=== PATIENT | male | born 1955 | race Caucasian/White ===

== ENCOUNTER → 2016-12-02 | Outpatient (CLI) | payer MEDICARE ==
[~2016-12-02] MED LIST: DICL25TA PO; FLECTOR1.3 TOP; GABA600T3 OR; IBUP600T OR; PRAV40TA OR; RYBIX SL; SOMA350T PO; TRAM50TA2 PO; TRIC145T19 OR; VICO5TAB OR; advil PO
--- NOTE | 2016-12-03 10:39 | REP ---
REASON FOR EXAM: History of disc disorders with radicular symptoms. Comparison exam 04/15/2011. Once again, there is loss of disc space height and disc hydrational signal at every lumbar level. This has increased in severity compared to the prior exam. No abnormal signal has developed in the imaged portion of the spinal cord. Vertebral body height and alignment is unchanged. The marrow signal is within normal limits. At the L1-2 level, there is an asymmetric broad based annular bulge with a small left paracentral disc extrusion which focally causes a concave anterior deformity of the left anterior thecal sac. This represents a change from the prior exam when only a small focal disc protrusion was present. There is no foraminal narrowing. There is mild central canal stenosis. The small extrusion is seen in conjunction with a broad based annular bulge which has increased from the prior exam. At the L2-3 level, there is a large broad based annular bulge seen in conjunction with a small central slightly left paracentral disc extrusion which causes a mild concave anterior deformity of the anterior thecal sac. This is seen in conjunction with a large broad based annular bulge the size of which has increased from the prior exam. The factors in concert are causing mild to moderate central canal stenosis. There is no evidence of foraminal narrowing or compression of either foraminal nerve. Mild degenerative facet joint changes are present with thickening of the ligamentum flava. At the L3-4 level, there is a large asymmetric broad based annular bulge which has increased from the prior exam. This is seen in conjunction with degenerative facet joint changes bilaterally and thickening of the ligamentum flava. The broad based bulge flattens and straightens the anterior surface of the thecal sac and the degenerative factors in concert are causing moderate central canal stenosis which has worsened from the prior exam. At the L4-5 level, there is a large asymmetric broad based annular bulge which appears to have increased from the prior exam. There is degenerative facet joint change seen bilaterally with thickening of the ligamentum flava and the factors in concert are causing moderate central canal stenosis increased from the prior exam. There is no evidence of a disc extrusion. At the L5-S1 level, there is a large broad based annular bulge seen in conjunction with a central/left paracentral disc extrusion. The discogenic changes are causing moderate central canal stenosis which has increased from the prior exam and the extruded disc material is compressing upon the S1 nerve. The broad based annular bulge is seen mildly compressing the foraminal nerves as they exit the neural foramen. These factors represent a change compared to the prior exam. IMPRESSION: 1. Multilevel discogenic changes and degenerative facet joint changes as described above. There are multiple disc extrusions and there is evidence of foraminal nerve compression with special attention drawn to the L5-S1 level. Signed by Tyshawn Cano DO 12/03/2016 11:53 A
== END ==
LOC: M RAD 18:28
PROVIDERS: ATTEND Surgery
DX: M51.16 Intervertebral disc disorders with radiculopathy, lumbar region (principal); M54.5 Low back pain

== ENCOUNTER → 2017-12-16 | Outpatient (REF) | payer MEDICARE ==
[2017-12-16 17:33] LABS: INR 0.98; PROTHROMBIN TIME 13.1 SECONDS (12.1-14.4)
[2017-12-16 17:34] LABS: PARTIAL THROMBOPLASTIN TIME 50.1 SECONDS (25.4-37.6)
== END ==
LOC: M LAB REF 16:54
DX: Z01.818 Encounter for other preprocedural examination (principal); Z79.01 Long term (current) use of anticoagulants
CPT/HCPCS: 85610

== ENCOUNTER 2018-03-04 01:01 | Inpatient (IN) | payer MEDICARE ==
[2018-03-04] MEDS: NS 1,000 ML IV ×6 (01:15→18:15)
[2018-03-04 01:48] LABS: BASO % 0.6 % (0.0-1.0); EOS % 0.5 % (0.0-3.0); HEMATOCRIT 34.5 % (42.0-52.0); HEMOGLOBIN 11.5 g/dl (13.5-17.5); IMMATURE GRANULOCYTE % 1.2 % (0-3.0); LYMPH # 1.3 10^3/uL (1.5-4.5); LYMPH % 19.8 % (24.0-44.0); MEAN CORPUSCULAR HGB CONC 33.3 g/dl (32.0-36.5); MEAN CORPUSCULAR VOLUME 104.9 fl (80.0-96.0); MONO # 0.7 10^3/uL (0.0-0.8); MONO % 10.6 % (0.0-5.0); NEUTROPHILS # 4.5 10^3/uL (1.8-7.7); NEUTROPHILS % 67.3 % (36.0-66.0); PLATELET COUNT, AUTOMATED 243 10^3/uL (150-450); RED BLOOD COUNT 3.29 10^6/uL (4.30-6.10); RED CELL DISTRIBUTION WIDTH 13.3 % (11.5-14.5); WHITE BLOOD COUNT 6.6 10^3/uL (4.0-10.0)
[2018-03-04 01:52] LABS: BEDSIDE GLUCOSE 305 MG/DL (80-115)
[2018-03-04 01:53] LABS: INR 1.19; PROTHROMBIN TIME 15.3 SECONDS (12.1-14.4)
[2018-03-04 01:54] LABS: PARTIAL THROMBOPLASTIN TIME 37.6 SECONDS (25.4-37.6)
[2018-03-04 02:02] LABS: LACTIC ACID SEPSIS PROTOCOL 1.7 MMOL/L (0.4-2.0)
[2018-03-04 02:10] LABS: ALBUMIN 2.8 GM/DL (3.2-5.2); ALBUMIN/GLOBULIN RATIO 0.88 (1.00-1.93); ALKALINE PHOSPHATASE 68 U/L (45-117); ALT/SGPT 19 U/L (12-78); ANION GAP 7 MEQ/L (8-16); AST/SGOT 17 U/L (7-37); BILIRUBIN,DIRECT < 0.1 MG/DL (0.0-0.2); BILIRUBIN,TOTAL 0.4 MG/DL (0.2-1.0); BLOOD UREA NITROGEN 26 MG/DL (7-18); CALCIUM LEVEL 7.9 MG/DL (8.8-10.2); CARBON DIOXIDE LEVEL 24 MEQ/L (21-32); CHLORIDE LEVEL 104 MEQ/L (98-107); CK-MB VALUE MASS < 1.0 NG/ML (<3.6); CPK CREATINE PHOSPHOKINASE 64 U/L (39-308); CREATININE FOR GFR 1.91 MG/DL (0.70-1.30); FREE T4 1.06 NG/DL (0.76-1.46); GLUCOSE, FASTING 300 MG/DL (70-100); LIPASE 155 U/L (73-393); MB/CK RELATIVE INDEX 1.56 (< OR =4); SODIUM LEVEL 135 MEQ/L (136-145); TROPONIN I < 0.02 NG/ML (< 0.10)
[2018-03-04] MEDS: HumuLIN R (REGULAR) INSULIN (NovoLIN R) **100U/ML** PER UNIT IV (03:01)
[2018-03-04] MEDS: CALCIUM GLUCONATE 1,000 MG in D5W MINI-BAG PLUS 100 ML IV (03:02)
[2018-03-04] MEDS: DEXTROSE 50% 50 ML SYRINGE IV (03:05)
[2018-03-04] MEDS ORDERED: ONDANSETRON 4MG/2ML VIAL (J2405) IV (05:45)
[2018-03-04] MEDS ORDERED: GLUCAGON FOR INJ 1 MG VIAL (J1610) SC (05:45)
[2018-03-04] MEDS ORDERED: GLUCOSE 4 GM CHEW TABLET PO (05:45)
[2018-03-04] MEDS ORDERED: DEXTROSE 50% 50 ML SYRINGE IV (05:45)
[2018-03-04] MEDS ORDERED: NORCO, ANEXSIA 5/325MG TABLET (HYDROcodone/ACETAMINOPHEN) PO (05:45)
[2018-03-04] MEDS: CLINDAMYCIN 300 MG in APPROPRIATE DILUENT 1 EA IV ×3 (06:00→21:36)
[2018-03-04] MEDS: HEPARIN SOD (PORCINE) 5000 UNITS/ML VIAL SC ×3 (06:00→21:35)
[2018-03-04 07:17] LABS: BEDSIDE GLUCOSE 281 MG/DL (80-115)
[2018-03-04 07:37] LABS: BASO % 0.5 % (0.0-1.0); EOS % 0.2 % (0.0-3.0); HEMATOCRIT 40.7 % (42.0-52.0); IMMATURE GRANULOCYTE % 0.7 % (0-3.0); LYMPH # 1.5 10^3/uL (1.5-4.5); LYMPH % 27.1 % (24.0-44.0); MEAN CORPUSCULAR HEMOGLOBIN 35.1 pg (27.0-33.0); MEAN CORPUSCULAR HGB CONC 33.9 g/dl (32.0-36.5); MEAN CORPUSCULAR VOLUME 103.6 fl (80.0-96.0); MONO # 0.5 10^3/uL (0.0-0.8); NEUTROPHILS # 3.5 10^3/uL (1.8-7.7); NEUTROPHILS % 62.5 % (36.0-66.0); PLATELET COUNT, AUTOMATED 212 10^3/uL (150-450); RED BLOOD COUNT 3.93 10^6/uL (4.30-6.10); RED CELL DISTRIBUTION WIDTH 13.6 % (11.5-14.5); WHITE BLOOD COUNT 5.5 10^3/uL (4.0-10.0)
[2018-03-04 07:44] LABS: HEMOGLOBIN 13.8 g/dl (13.5-17.5)
[2018-03-04 08:06] LABS: ERYTHROCYTE SEDIMENTATION RATE 65 mm/hr (0-20)
[2018-03-04] MEDS: HumaLOG INSULIN (NovoLOG) PER UNIT SC ×4 (08:07→21:35)
[2018-03-04 08:08] LABS: ANION GAP 11 MEQ/L (8-16); BLOOD UREA NITROGEN 26 MG/DL (7-18); CALCIUM LEVEL 8.5 MG/DL (8.8-10.2); CARBON DIOXIDE LEVEL 19 MEQ/L (21-32); CHLORIDE LEVEL 108 MEQ/L (98-107); CHOLESTEROL LEVEL 109 MG/DL (<200); CHOLESTEROL RISK RATIO 3.516 (<5); COMPLEMENT C3 123 MG/DL (90-180); CREATININE FOR GFR 1.56 MG/DL (0.70-1.30); GLOMERULAR FILTRATION RATE 47.9 (>49); GLUCOSE, FASTING 259 MG/DL (70-100); HDL CHOLESTEROL 31 MG/DL (>40); LDL CHOLESTEROL 56 MG/DL (<100); NON-HDL-C 78 MG/DL; POTASSIUM SERUM 4.4 MEQ/L (3.5-5.1); PSA SCREENING 0.43 NG/ML (< 4.0); SODIUM LEVEL 138 MEQ/L (136-145); TRIGLYCERIDES LEVEL 108 MG/DL (<150)
[2018-03-04] MEDS: SODIUM BICARBONATE 325 MG TAB PO ×4 (09:00→21:35)
[2018-03-04] MEDS: GABAPENTIN 300 MG CAP PO ×3 (09:39→21:36)
[2018-03-04 09:54] LABS: HEPATITIS B SURFACE ANTIGEN NEGATIVE (NEGATIVE)
[2018-03-04 10:21] LABS: HEPATITIS C VIRUS ABY INDEX 0.1 INDEX (<0.8)
[2018-03-04 10:22] LABS: HEPATITIS B CORE ANTIBODY IGM NEGATIVE (NEGATIVE)
[2018-03-04 10:23] LABS: HEPATITIS A ANTIBODY IGM NEGATIVE (NEGATIVE)
[2018-03-04 12:18] LABS: TOTAL PROTEIN,RANDOM URINE 20.9 MG/DL (0.0-12.0)
[2018-03-04 12:19] LABS: BEDSIDE GLUCOSE 156 MG/DL (80-115)
[2018-03-04 12:30] LABS: KETONE, URINE AUTO RFX NEGATIVE (NEGATIVE); LEUKOCYTE ESTERASE UR AUTO RFX NEGATIVE (NEGATIVE); NITRITE, URINE AUTO RFX NEGATIVE (NEGATIVE); RBC, URINE AUTO RFX 0 /HPF (0-3); SQUAM EPITHELIAL CELL UR AURFX 0 /HPF (0-6); WBC, URINE AUTO RFX 0 /HPF (0-3)
[2018-03-04 16:26] LABS: BEDSIDE GLUCOSE 209 MG/DL (80-115)
[2018-03-04] MEDS: NICOTINE 21MG/24HR 1 EA TRANSDERMAL TD (18:14)
[2018-03-04] MEDS: ACETAMINOPHEN TAB 650MG DOSE (2X325MG) PO (18:15)
[2018-03-04 19:52] LABS: BEDSIDE GLUCOSE 278 MG/DL (80-115)
[2018-03-04 21:28] LABS: ANION GAP 8 MEQ/L (8-16); BLOOD UREA NITROGEN 21 MG/DL (7-18); CALCIUM LEVEL 8.2 MG/DL (8.8-10.2); CARBON DIOXIDE LEVEL 22 MEQ/L (21-32); CHLORIDE LEVEL 108 MEQ/L (98-107); CREATININE FOR GFR 1.21 MG/DL (0.70-1.30); GLOMERULAR FILTRATION RATE > 60.0 (>49); GLUCOSE, FASTING 219 MG/DL (70-100); SODIUM LEVEL 138 MEQ/L (136-145)
[2018-03-04] MEDS: tiZANidine 4 MG TAB PO (21:36)
[2018-03-05] MEDS: NS 1,000 ML IV ×2 (00:12→08:20)
[2018-03-05] MEDS: ACETAMINOPHEN TAB 650MG DOSE (2X325MG) PO (00:14)
[2018-03-05] MEDS: HEPARIN SOD (PORCINE) 5000 UNITS/ML VIAL SC (05:06)
[2018-03-05] MEDS: CLINDAMYCIN 300 MG in APPROPRIATE DILUENT 1 EA IV (05:06)
[2018-03-05 06:11] LABS: BASO % 0.6 % (0.0-1.0); EOS # 0.1 10^3/uL (0.0-0.50); EOS % 0.9 % (0.0-3.0); HEMOGLOBIN 12.5 g/dl (13.5-17.5); IMMATURE GRANULOCYTE % 0.8 % (0-3.0); LYMPH % 37.9 % (24.0-44.0); MEAN CORPUSCULAR HEMOGLOBIN 34.7 pg (27.0-33.0); MEAN CORPUSCULAR HGB CONC 33.8 g/dl (32.0-36.5); MEAN CORPUSCULAR VOLUME 102.8 fl (80.0-96.0); MONO # 0.5 10^3/uL (0.0-0.8); MONO % 9.7 % (0.0-5.0); NEUTROPHILS # 2.7 10^3/uL (1.8-7.7); NEUTROPHILS % 50.1 % (36.0-66.0); PLATELET COUNT, AUTOMATED 249 10^3/uL (150-450); RED CELL DISTRIBUTION WIDTH 13.4 % (11.5-14.5); WHITE BLOOD COUNT 5.3 10^3/uL (4.0-10.0)
[2018-03-05 06:15] LABS: BEDSIDE GLUCOSE 214 MG/DL (80-115)
[2018-03-05 06:30] LABS: ANION GAP 7 MEQ/L (8-16); BLOOD UREA NITROGEN 12 MG/DL (7-18); CALCIUM LEVEL 8.1 MG/DL (8.8-10.2); CARBON DIOXIDE LEVEL 26 MEQ/L (21-32); CHLORIDE LEVEL 107 MEQ/L (98-107); CREATININE FOR GFR 1.14 MG/DL (0.70-1.30); GLOMERULAR FILTRATION RATE > 60.0 (>49); GLUCOSE, FASTING 213 MG/DL (70-100); POTASSIUM SERUM 3.9 MEQ/L (3.5-5.1); SODIUM LEVEL 140 MEQ/L (136-145)
[2018-03-05] MEDS: SODIUM BICARBONATE 325 MG TAB PO (08:20)
[2018-03-05] MEDS: HumaLOG INSULIN (NovoLOG) PER UNIT SC ×2 (08:20→12:42)
[2018-03-05] MEDS: GABAPENTIN 300 MG CAP PO (08:21)
[2018-03-05] MEDS: NICOTINE 21MG/24HR 1 EA TRANSDERMAL TD (08:23)
[2018-03-05] MEDS ORDERED: NICOTINE 21MG/24HR 1 EA TRANSDERMAL TD (09:00)
[2018-03-05 11:37] LABS: BEDSIDE GLUCOSE 195 MG/DL (80-115)
[2018-03-06 00:07] LABS: ANTINUCLEAR ANTIBODIES DIRECT Negative (Negative); COMPLEMENT TOTAL (CH50) 60 U/mL (>41)
[2018-03-06] MEDS ORDERED: INFLUENZA QUADRIVALENT PF VACCINE 0.5ML SYRINGE (90686) IM (09:00)
[2019-03-04] MEDS ORDERED: NICOTINE 21MG/24HR 1 EA TRANSDERMAL TD (09:00)
== END 2018-03-05 13:15 | disposition home health service (06) | DRG 684 ==
LOC: M ED 01:01 → M ED INP 05:43 → M MSPAV 13:51
DX: N17.9 Acute kidney failure, unspecified (principal); I95.9 Hypotension, unspecified; E87.5 Hyperkalemia; E78.5 Hyperlipidemia, unspecified; M54.9 Dorsalgia, unspecified; R91.1 Solitary pulmonary nodule; I10 Essential (primary) hypertension; E11.51 Type 2 diabetes mellitus with diabetic peripheral angiopathy without gangrene; F17.210 Nicotine dependence, cigarettes, uncomplicated; Z95.820 Peripheral vascular angioplasty status with implants and grafts; Z79.4 Long term (current) use of insulin; Z79.899 Other long term (current) drug therapy; Z88.0 Allergy status to penicillin; Z88.1 Allergy status to other antibiotic agents; Z88.8 Allergy status to other drugs, medicaments and biological substances

== ENCOUNTER → 2018-03-16 | Outpatient (REF) | payer MEDICARE ==
[2018-03-16 14:12] LABS: HEMATOCRIT 33.4 % (42.0-52.0); HEMOGLOBIN 11.4 g/dl (13.5-17.5); MEAN CORPUSCULAR HEMOGLOBIN 34.9 pg (27.0-33.0); MEAN CORPUSCULAR HGB CONC 34.1 g/dl (32.0-36.5); MEAN CORPUSCULAR VOLUME 102.1 fl (80.0-96.0); PLATELET COUNT, AUTOMATED 318 10^3/uL (150-450); RED BLOOD COUNT 3.27 10^6/uL (4.30-6.10); RED CELL DISTRIBUTION WIDTH 13.2 % (11.5-14.5); WHITE BLOOD COUNT 4.2 10^3/uL (4.0-10.0)
[2018-03-16 14:14] LABS: ADD MANUAL DIFFER YES; DIFF SLIDE NUMBER 276; POSITIVE MORPH POS FLAG
[2018-03-16 14:28] LABS: ATYPICAL LYMPH 1 % (0-5); BASOPHILS 1 % (0-4); EOSINOPHILS 2 % (0-5); LYMPHOCYTES 40 % (16-52); MONOCYTES 11 % (0-8); PLATELET ESTIMATE NORMAL (NORMAL)
[2018-03-16 14:39] LABS: ERYTHROCYTE SEDIMENTATION RATE 107 mm/hr (0-20)
[2018-03-16 14:47] LABS: ALBUMIN 2.7 GM/DL (3.2-5.2); ALBUMIN/GLOBULIN RATIO 0.71 (1.00-1.93); ALKALINE PHOSPHATASE 75 U/L (45-117); ALT/SGPT 42 U/L (12-78); ANION GAP 7 MEQ/L (8-16); AST/SGOT 27 U/L (7-37); BILIRUBIN,TOTAL 0.2 MG/DL (0.2-1.0); BLOOD UREA NITROGEN 13 MG/DL (7-18); C REACTIVE PROTEIN QUANTITATIV 3.51 MG/DL (0.00-0.30); CALCIUM LEVEL 9.1 MG/DL (8.8-10.2); CARBON DIOXIDE LEVEL 28 MEQ/L (21-32); CHLORIDE LEVEL 103 MEQ/L (98-107); CREATININE FOR GFR 0.87 MG/DL (0.70-1.30); GLOMERULAR FILTRATION RATE > 60.0 (>49); GLUCOSE, FASTING 216 MG/DL (70-100); POTASSIUM SERUM 4.5 MEQ/L (3.5-5.1); SODIUM LEVEL 138 MEQ/L (136-145); TOTAL PROTEIN 6.5 GM/DL (6.4-8.2); VANCOMYCIN LEVEL TROUGH 18.6 UG/ML (10.0-20.0)
[2018-03-16 17:45] LABS: NEUTROPHILS 45 % (35-75)
== END ==
LOC: M LAB REF 13:57
DX: Z79.899 Other long term (current) drug therapy (principal)
CPT/HCPCS: 80053

== ENCOUNTER → 2018-03-23 | Outpatient (REF) | payer MEDICARE ==
[2018-03-23 16:16] LABS: HEMATOCRIT 36.2 % (42.0-52.0); HEMOGLOBIN 12.1 g/dl (13.5-17.5); MEAN CORPUSCULAR HEMOGLOBIN 34.7 pg (27.0-33.0); MEAN CORPUSCULAR HGB CONC 33.4 g/dl (32.0-36.5); MEAN CORPUSCULAR VOLUME 103.7 fl (80.0-96.0); PLATELET COUNT, AUTOMATED 352 10^3/uL (150-450); RED BLOOD COUNT 3.49 10^6/uL (4.30-6.10); RED CELL DISTRIBUTION WIDTH 14.1 % (11.5-14.5); WHITE BLOOD COUNT 3.4 10^3/uL (4.0-10.0)
[2018-03-23 16:18] LABS: ADD MANUAL DIFFER YES; DIFF SLIDE NUMBER 342; POSITIVE MORPH POS FLAG
[2018-03-23 17:03] LABS: ALBUMIN/GLOBULIN RATIO 0.75 (1.00-1.93); ALKALINE PHOSPHATASE 84 U/L (45-117); ALT/SGPT 41 U/L (12-78); ANION GAP 8 MEQ/L (8-16); AST/SGOT 24 U/L (7-37); BILIRUBIN,TOTAL 0.3 MG/DL (0.2-1.0); BLOOD UREA NITROGEN 11 MG/DL (7-18); C REACTIVE PROTEIN QUANTITATIV 2.91 MG/DL (0.00-0.30); CALCIUM LEVEL 9.4 MG/DL (8.8-10.2); CARBON DIOXIDE LEVEL 29 MEQ/L (21-32); CHLORIDE LEVEL 104 MEQ/L (98-107); CREATININE FOR GFR 0.85 MG/DL (0.70-1.30); GLOMERULAR FILTRATION RATE > 60.0 (>49); GLUCOSE, FASTING 134 MG/DL (70-100); POTASSIUM SERUM 4.8 MEQ/L (3.5-5.1); SODIUM LEVEL 141 MEQ/L (136-145); VANCOMYCIN RANDOM 20.5 UG/ML
[2018-03-23 17:59] LABS: ATYPICAL LYMPH 10 % (0-5); BANDS 1 % (< 11); EOSINOPHILS 1 % (0-5); LYMPHOCYTES 43 % (16-52); MONOCYTES 7 % (0-8); MYELOCYTES 1 % (0-0); NEUTROPHILS 37 % (35-75); PLATELET ESTIMATE NORMAL (NORMAL)
[2018-03-23 19:19] LABS: ERYTHROCYTE SEDIMENTATION RATE 108 mm/hr (0-20)
== END ==
LOC: M LAB REF 16:02
DX: T81.49XA Infection following a procedure, other surgical site, initial encounter (principal)
CPT/HCPCS: 80053

== ENCOUNTER → 2018-03-30 | Outpatient (REF) | payer MEDICARE ==
[2018-03-30 19:07] LABS: BASO % 0.7 % (0.0-1.0); EOS # 0.1 10^3/uL (0.0-0.50); EOS % 2.9 % (0.0-3.0); HEMATOCRIT 34.8 % (42.0-52.0); HEMOGLOBIN 11.5 g/dl (13.5-17.5); IMMATURE GRANULOCYTE % 0.4 % (0-3.0); LYMPH # 1.2 10^3/uL (1.5-4.5); LYMPH % 44.4 % (24.0-44.0); MEAN CORPUSCULAR HEMOGLOBIN 34.1 pg (27.0-33.0); MEAN CORPUSCULAR VOLUME 103.3 fl (80.0-96.0); MONO # 0.2 10^3/uL (0.0-0.8); MONO % 7.9 % (0.0-5.0); NEUTROPHILS # 1.2 10^3/uL (1.8-7.7); NEUTROPHILS % 43.7 % (36.0-66.0); PLATELET COUNT, AUTOMATED 267 10^3/uL (150-450); RED BLOOD COUNT 3.37 10^6/uL (4.30-6.10); RED CELL DISTRIBUTION WIDTH 14.8 % (11.5-14.5); WHITE BLOOD COUNT 2.8 10^3/uL (4.0-10.0)
[2018-03-30 19:23] LABS: ALBUMIN 2.8 GM/DL (3.2-5.2); ALBUMIN/GLOBULIN RATIO 0.76 (1.00-1.93); ALKALINE PHOSPHATASE 74 U/L (45-117); ALT/SGPT 28 U/L (12-78); ANION GAP 10 MEQ/L (8-16); AST/SGOT 12 U/L (7-37); BILIRUBIN,TOTAL 0.3 MG/DL (0.2-1.0); BLOOD UREA NITROGEN 11 MG/DL (7-18); C REACTIVE PROTEIN QUANTITATIV 3.83 MG/DL (0.00-0.30); CALCIUM LEVEL 8.9 MG/DL (8.8-10.2); CARBON DIOXIDE LEVEL 24 MEQ/L (21-32); CHLORIDE LEVEL 106 MEQ/L (98-107); CREATININE FOR GFR 0.96 MG/DL (0.70-1.30); GLOMERULAR FILTRATION RATE > 60.0 (>49); GLUCOSE, FASTING 221 MG/DL (70-100); POTASSIUM SERUM 4.2 MEQ/L (3.5-5.1); SODIUM LEVEL 140 MEQ/L (136-145); TOTAL PROTEIN 6.5 GM/DL (6.4-8.2)
[2018-03-30 19:50] LABS: ERYTHROCYTE SEDIMENTATION RATE 106 mm/hr (0-20)
== END ==
LOC: M LAB REF 16:25
DX: T81.49XA Infection following a procedure, other surgical site, initial encounter (principal); Y82.8 Other medical devices associated with adverse incidents
CPT/HCPCS: 80053

== ENCOUNTER → 2018-04-15 | Outpatient (REF) | payer MEDICARE ==
[2018-04-15 17:54] LABS: HEMOGLOBIN 13.2 g/dl (13.5-17.5); MEAN CORPUSCULAR HEMOGLOBIN 33.9 pg (27.0-33.0); MEAN CORPUSCULAR VOLUME 102.8 fl (80.0-96.0); PLATELET COUNT, AUTOMATED 307 10^3/uL (150-450); RED BLOOD COUNT 3.89 10^6/uL (4.30-6.10); RED CELL DISTRIBUTION WIDTH 14.6 % (11.5-14.5); WHITE BLOOD COUNT 3.9 10^3/uL (4.0-10.0)
[2018-04-15 18:03] LABS: POSITIVE MORPH POS FLAG
[2018-04-15 18:04] LABS: ADD MANUAL DIFFER YES; DIFF SLIDE NUMBER 302
[2018-04-15 18:19] LABS: ALBUMIN 3.2 GM/DL (3.2-5.2); ALBUMIN/GLOBULIN RATIO 0.84 (1.00-1.93); ALKALINE PHOSPHATASE 84 U/L (45-117); ALT/SGPT 20 U/L (12-78); ANION GAP 7 MEQ/L (8-16); AST/SGOT 14 U/L (7-37); BILIRUBIN,TOTAL 0.3 MG/DL (0.2-1.0); BLOOD UREA NITROGEN 16 MG/DL (7-18); C REACTIVE PROTEIN QUANTITATIV 3.14 MG/DL (0.00-0.30); CALCIUM LEVEL 9.3 MG/DL (8.8-10.2); CARBON DIOXIDE LEVEL 25 MEQ/L (21-32); CHLORIDE LEVEL 104 MEQ/L (98-107); CREATININE FOR GFR 1.04 MG/DL (0.70-1.30); GLOMERULAR FILTRATION RATE > 60.0 (>49); GLUCOSE, FASTING 197 MG/DL (70-100); POTASSIUM SERUM 4.6 MEQ/L (3.5-5.1); SODIUM LEVEL 136 MEQ/L (136-145)
[2018-04-15 18:20] LABS: ERYTHROCYTE SEDIMENTATION RATE 84 mm/hr (0-20)
[2018-04-15 18:38] LABS: ATYPICAL LYMPH 1 % (0-5); LYMPHOCYTES 30 % (16-52); NEUTROPHILS 55 % (35-75)
[2018-04-15 18:40] LABS: BANDS 1 % (< 11); PLATELET ESTIMATE NORMAL (NORMAL)
[2018-04-15 18:41] LABS: EOSINOPHILS 5 % (0-5); MONOCYTES 8 % (0-8)
== END ==
LOC: M LAB REF 16:07
DX: T81.49XA Infection following a procedure, other surgical site, initial encounter (principal); Y82.9 Unspecified medical devices associated with adverse incidents
CPT/HCPCS: 80053

== ENCOUNTER → 2018-04-28 | Outpatient (REF) | payer MEDICARE ==
[2018-04-28 14:03] LABS: BASO % 0.4 % (0.0-1.0); EOS # 0.1 10^3/uL (0.0-0.50); EOS % 1.8 % (0.0-3.0); HEMATOCRIT 39.6 % (42.0-52.0); HEMOGLOBIN 13.3 g/dl (13.5-17.5); IMMATURE GRANULOCYTE % 1.6 % (0-3.0); LYMPH # 1.4 10^3/uL (1.5-4.5); LYMPH % 28.1 % (24.0-44.0); MEAN CORPUSCULAR HEMOGLOBIN 33.3 pg (27.0-33.0); MEAN CORPUSCULAR HGB CONC 33.6 g/dl (32.0-36.5); MEAN CORPUSCULAR VOLUME 99.2 fl (80.0-96.0); MONO # 0.5 10^3/uL (0.0-0.8); MONO % 9.4 % (0.0-5.0); NEUTROPHILS % 58.7 % (36.0-66.0); PLATELET COUNT, AUTOMATED 290 10^3/uL (150-450); RED BLOOD COUNT 3.99 10^6/uL (4.30-6.10); WHITE BLOOD COUNT 5.1 10^3/uL (4.0-10.0)
[2018-04-28 14:25] LABS: ERYTHROCYTE SEDIMENTATION RATE 89 mm/hr (0-20)
[2018-04-28 14:40] LABS: ALBUMIN 2.9 GM/DL (3.2-5.2); ALBUMIN/GLOBULIN RATIO 0.73 (1.00-1.93); ALKALINE PHOSPHATASE 76 U/L (45-117); ALT/SGPT 27 U/L (12-78); ANION GAP 10 MEQ/L (8-16); AST/SGOT 16 U/L (7-37); BILIRUBIN,TOTAL 0.2 MG/DL (0.2-1.0); BLOOD UREA NITROGEN 18 MG/DL (7-18); C REACTIVE PROTEIN QUANTITATIV 8.72 MG/DL (0.00-0.30); CALCIUM LEVEL 8.5 MG/DL (8.8-10.2); CARBON DIOXIDE LEVEL 24 MEQ/L (21-32); CHLORIDE LEVEL 101 MEQ/L (98-107); CREATININE FOR GFR 1.23 MG/DL (0.70-1.30); GLOMERULAR FILTRATION RATE > 60.0 (>49); GLUCOSE, FASTING 255 MG/DL (70-100); POTASSIUM SERUM 4.1 MEQ/L (3.5-5.1); SODIUM LEVEL 135 MEQ/L (136-145); TOTAL PROTEIN 6.9 GM/DL (6.4-8.2)
== END ==
LOC: M SFHCPLAZ 11:09
DX: T81.49XA Infection following a procedure, other surgical site, initial encounter (principal); L02.91 Cutaneous abscess, unspecified; I87.312 Chronic venous hypertension (idiopathic) with ulcer of left lower extremity; T81.31XD Disruption of external operation (surgical) wound, not elsewhere classified, subsequent encounter; Z79.4 Long term (current) use of insulin; E11.9 Type 2 diabetes mellitus without complications; E78.00 Pure hypercholesterolemia, unspecified; R68.83 Chills (without fever); R63.4 Abnormal weight loss; X58.XXXA Exposure to other specified factors, initial encounter; Y92.9 Unspecified place or not applicable
CPT/HCPCS: 80053

== ENCOUNTER → 2018-05-05 | Outpatient (REF) | payer MEDICARE ==
[2018-05-05 09:57] LABS: BASO % 0.5 % (0.0-1.0); HEMATOCRIT 40.6 % (42.0-52.0); HEMOGLOBIN 13.5 g/dl (13.5-17.5); IMMATURE GRANULOCYTE % 1.3 % (0-3.0); LYMPH # 1.4 10^3/uL (1.5-4.5); LYMPH % 35.6 % (24.0-44.0); MEAN CORPUSCULAR HEMOGLOBIN 33.6 pg (27.0-33.0); MEAN CORPUSCULAR HGB CONC 33.3 g/dl (32.0-36.5); MONO # 0.4 10^3/uL (0.0-0.8); MONO % 9.3 % (0.0-5.0); NEUTROPHILS % 52.3 % (36.0-66.0); PLATELET COUNT, AUTOMATED 296 10^3/uL (150-450); RED BLOOD COUNT 4.02 10^6/uL (4.30-6.10); RED CELL DISTRIBUTION WIDTH 14.2 % (11.5-14.5); WHITE BLOOD COUNT 3.9 10^3/uL (4.0-10.0)
[2018-05-05 10:11] LABS: C REACTIVE PROTEIN QUANTITATIV 4.37 MG/DL (0.00-0.30)
[2018-05-05 10:25] LABS: ERYTHROCYTE SEDIMENTATION RATE 68 mm/hr (0-20)
== END ==
LOC: M LABDRAW1 09:31
DX: T81.49XA Infection following a procedure, other surgical site, initial encounter (principal); Y83.8 Other surgical procedures as the cause of abnormal reaction of the patient, or of later complication, without mention of misadventure at the time of the procedure
CPT/HCPCS: 86140

== ENCOUNTER → 2018-05-12 | Outpatient (CLI) | payer MEDICARE ==
[2018-05-12 17:06] LABS: BASO % 0.4 % (0.0-1.0); EOS # 0.1 10^3/uL (0.0-0.50); EOS % 1.3 % (0.0-3.0); HEMATOCRIT 40.8 % (42.0-52.0); HEMOGLOBIN 13.7 g/dl (13.5-17.5); IMMATURE GRANULOCYTE % 0.9 % (0-3.0); LYMPH # 1.5 10^3/uL (1.5-4.5); LYMPH % 31.3 % (24.0-44.0); MEAN CORPUSCULAR HEMOGLOBIN 33.9 pg (27.0-33.0); MEAN CORPUSCULAR HGB CONC 33.6 g/dl (32.0-36.5); MONO # 0.4 10^3/uL (0.0-0.8); MONO % 9.1 % (0.0-5.0); NEUTROPHILS # 2.7 10^3/uL (1.8-7.7); PLATELET COUNT, AUTOMATED 282 10^3/uL (150-450); RED BLOOD COUNT 4.04 10^6/uL (4.30-6.10); RED CELL DISTRIBUTION WIDTH 14.6 % (11.5-14.5); WHITE BLOOD COUNT 4.7 10^3/uL (4.0-10.0)
[2018-05-12 17:21] LABS: ANION GAP 9 MEQ/L (8-16); BLOOD UREA NITROGEN 15 MG/DL (7-18); C REACTIVE PROTEIN QUANTITATIV 7.89 MG/DL (0.00-0.30); CALCIUM LEVEL 9.1 MG/DL (8.8-10.2); CARBON DIOXIDE LEVEL 27 MEQ/L (21-32); CHLORIDE LEVEL 101 MEQ/L (98-107); GLOMERULAR FILTRATION RATE > 60.0 (>49); GLUCOSE, FASTING 126 MG/DL (70-100); POTASSIUM SERUM 4.5 MEQ/L (3.5-5.1); SODIUM LEVEL 137 MEQ/L (136-145)
[2018-05-12 19:08] LABS: ERYTHROCYTE SEDIMENTATION RATE 77 mm/hr (0-20)
== END ==
LOC: M WUC 12:46
DX: T81.49XA Infection following a procedure, other surgical site, initial encounter (principal); X58.XXXA Exposure to other specified factors, initial encounter; Y92.9 Unspecified place or not applicable
CPT/HCPCS: 80048

== ENCOUNTER → 2018-05-20 | Outpatient (CLI) | payer MEDICARE ==
[~2018-05-20] MED LIST changes: -DICL25TA PO; -FLECTOR1.3 TOP; -GABA600T3 OR; -IBUP600T OR; +ISOVUE-370 76% 100ML VIAL (Q9967) As Ordered; -PRAV40TA OR; -RYBIX SL; -SOMA350T PO; -TRAM50TA2 PO; -TRIC145T19 OR; -VICO5TAB OR; -advil PO
== END ==
LOC: M RAD 10:35
DX: S81.801D Unspecified open wound, right lower leg, subsequent encounter (principal); X58.XXXD Exposure to other specified factors, subsequent encounter; T82.39 Other mechanical complication of other vascular grafts; D64.9 Anemia, unspecified; I10 Essential (primary) hypertension; Z12.5 Encounter for screening for malignant neoplasm of prostate; Z98.890 Other specified postprocedural states
CPT/HCPCS: Q9967

== ENCOUNTER → 2018-05-20 | Outpatient (CLI) | payer MEDICARE ==
[2018-05-20 12:09] LABS: ALBUMIN/GLOBULIN RATIO 0.75 (1.00-1.93); ALKALINE PHOSPHATASE 72 U/L (45-117); ALT/SGPT 28 U/L (12-78); ANION GAP 6 MEQ/L (8-16); AST/SGOT 13 U/L (7-37); BILIRUBIN,TOTAL 0.3 MG/DL (0.2-1.0); BLOOD UREA NITROGEN 21 MG/DL (7-18); CALCIUM LEVEL 8.7 MG/DL (8.8-10.2); CARBON DIOXIDE LEVEL 30 MEQ/L (21-32); CHLORIDE LEVEL 101 MEQ/L (98-107); CREATININE FOR GFR 0.99 MG/DL (0.70-1.30); GLOMERULAR FILTRATION RATE > 60.0 (>49); GLUCOSE, FASTING 170 MG/DL (70-100); POTASSIUM SERUM 4.7 MEQ/L (3.5-5.1); PROSTATIC SPECIFIC AG MONITOR 0.4 NG/ML (< 4.0); SODIUM LEVEL 137 MEQ/L (136-145)
== END ==
LOC: M LAB 10:49
DX: D64.9 Anemia, unspecified (principal); I10 Essential (primary) hypertension; Z12.5 Encounter for screening for malignant neoplasm of prostate

== ENCOUNTER → 2018-05-29 | Outpatient (REF) | payer MEDICARE ==
[2018-05-29 12:06] LABS: BASO % 0.4 % (0.0-1.0); EOS % 0.8 % (0.0-3.0); HEMATOCRIT 36.1 % (42.0-52.0); HEMOGLOBIN 12.3 g/dl (13.5-17.5); IMMATURE GRANULOCYTE % 1.4 % (0-3.0); LYMPH # 1.5 10^3/uL (1.5-4.5); LYMPH % 29.2 % (24.0-44.0); MEAN CORPUSCULAR HEMOGLOBIN 33.6 pg (27.0-33.0); MEAN CORPUSCULAR HGB CONC 34.1 g/dl (32.0-36.5); MEAN CORPUSCULAR VOLUME 98.6 fl (80.0-96.0); MONO # 0.5 10^3/uL (0.0-0.8); MONO % 10.4 % (0.0-5.0); NEUTROPHILS % 57.8 % (36.0-66.0); PLATELET COUNT, AUTOMATED 279 10^3/uL (150-450); RED BLOOD COUNT 3.66 10^6/uL (4.30-6.10); RED CELL DISTRIBUTION WIDTH 14.6 % (11.5-14.5); WHITE BLOOD COUNT 5.1 10^3/uL (4.0-10.0)
[2018-05-29 12:28] LABS: ERYTHROCYTE SEDIMENTATION RATE > 140 mm/hr (0-20)
== END ==
LOC: M LABDRAW1 09:50
DX: T81.49XA Infection following a procedure, other surgical site, initial encounter (principal); T81.31XD Disruption of external operation (surgical) wound, not elsewhere classified, subsequent encounter
CPT/HCPCS: 86140

== ENCOUNTER → 2018-10-30 | Outpatient (CLI) | payer MEDICARE ==
[~2018-10-30] MED LIST changes: +AMLO10TA5 PO; +BACITAB PO; +BENA20TA8 PO; +CIPR750T2 PO; +CLEO300C2 PO; +DICL25TA PO; +FLECTOR1.3 TOP; +GABA600T3 OR; +GABA600T4 PO; +GLIP10TA6 PO; +HUMA75VLDS SC; +IBUP600T OR; -ISOVUE-370 76% 100ML VIAL (Q9967) As Ordered; +LIVA1TAB PO; +METF500T4 PO; +NICO21PAT TD; +NORC1TAB7 PO; +PRAV40TA OR; +RYBIX SL; +SOMA350T PO; +TIZA4TAB4 PO; +TRAM50TA2 PO; +TRIC145T19 OR; +VICO5TAB OR; +ZETI10TA30 PO; +advil PO
--- NOTE | 2018-10-30 15:02 | REP ---
Right lower extremity arterial Doppler ultrasound: History: Atherosclerosis of the samish arteries of the right leg with ulceration. New pain. 10 months status post right fem-pop bypass graft. Findings: Ankle brachial index is decreased on the right and 0.63. Monophasic waveforms are noted throughout the patent bypass graft and throughout most of the samish vessels. Multifocal atherosclerosis is seen. Incidental note is made of a 30 mm of mercury differential between the systolic lourdes pressure in the right brachial artery (192) and the left brachial artery (162). The right fem-pop bypass grafts of the velocities are as follows: Proximal anastomoses 175 cm/S, proximal graft 35 cm/S, mid graft 45 cm/S, distal graft 43 cm/S , distal anastomosis 505 cm/S Right lower extremity arterial Doppler velocity chart: D I A 163 cm/S CF A 150 Profunda 202 Proximal SFA 125 Mid SFA 76 Distal SFA 94 Popliteal 15, reversed Proximal AT A 36 Tibioperoneal trunk 135 Proximal PHARMACY OPERATIONS SPECIALIST 76 Distal PHARMACY OPERATIONS SPECIALIST 30 Distal AT A 26 Electronically Signed by Davy Villanueva MD 10/30/2018 02:53 P
== END ==
LOC: M RAD 08:32
PROVIDERS: ATTEND Surgery
DX: I70.238 Atherosclerosis of native arteries of right leg with ulceration of other part of lower leg (principal); Z95.5 Presence of coronary angioplasty implant and graft

== ENCOUNTER → 2018-11-27 | Outpatient (CLI) | payer MEDICARE ==
[~2018-11-27] MED LIST changes: +CLOPIDOGREL 75 MG TAB As Ordered ONE; +HEPARIN 1,000 UNITS/ML 10ML VIAL (FOR RADIOLOGY& DIALYSIS ONLY) As Ordered ONE; +ISOVUE-300 61% 50ML VIAL (Q9967) As Ordered ONE; +LIDOCAINE 2% MDV 20 ML VIAL As Ordered ONE; +MIDAZOLAM INJ 2 MG/2 ML VIAL (J2250) As Ordered ONE; +ceFAZolin 1GM INJ (J0690 PER 500MG) As Ordered ONE; +fentaNYL 100 MCG/2 ML INJECTION (J3010) As Ordered ONE
[2018-11-27 07:19] LABS: HEMATOCRIT 34.9 % (42.0-52.0); HEMOGLOBIN 11.8 g/dl (13.5-17.5); MEAN CORPUSCULAR HEMOGLOBIN 36.3 pg (27.0-33.0); MEAN CORPUSCULAR HGB CONC 33.8 g/dl (32.0-36.5); MEAN CORPUSCULAR VOLUME 107.4 fl (80.0-96.0); PLATELET COUNT, AUTOMATED 249 10^3/uL (150-450); RED BLOOD COUNT 3.25 10^6/uL (4.30-6.10)
[2018-11-27 07:50] LABS: BLOOD UREA NITROGEN 17 MG/DL (7-18); CALCIUM LEVEL 8.2 MG/DL (8.8-10.2); CARBON DIOXIDE LEVEL 24 MEQ/L (21-32); CHLORIDE LEVEL 104 MEQ/L (98-107); CREATININE FOR GFR 1.14 MG/DL (0.70-1.30); GLOMERULAR FILTRATION RATE > 60.0 (>49); GLUCOSE, FASTING 267 MG/DL (70-100); SODIUM LEVEL 132 MEQ/L (136-145)
[2018-11-27 08:00] LABS: POTASSIUM SERUM 7.5 MEQ/L (3.5-5.1)
[2018-11-27 09:04] LABS: BLOOD UREA NITROGEN 16 MG/DL (7-18); CALCIUM LEVEL 7.9 MG/DL (8.8-10.2); CARBON DIOXIDE LEVEL 25 MEQ/L (21-32); CHLORIDE LEVEL 106 MEQ/L (98-107); CREATININE FOR GFR 1.04 MG/DL (0.70-1.30); GLOMERULAR FILTRATION RATE > 60.0 (>49); GLUCOSE, FASTING 226 MG/DL (70-100); POTASSIUM SERUM 4.1 MEQ/L (3.5-5.1); SODIUM LEVEL 138 MEQ/L (136-145)
--- NOTE | 2018-11-27 10:14 | ROOPDOC ---
[facility] Report Of Operation Report of Operation DATE OF PROCEDURE: 11/27/18 PREPROCEDURE DIAGNOSES: Atherosclerosis of the right lower extremity with stenosis femoral popliteal bypass and nonhealing wound right calf POSTPROCEDURE DIAGNOSES: Same PROCEDURE: 1. US guided access L CAMPAIGN DIRECTOR 2. RLE arteriogram with oblique views of the proximal femoral vessels 3. Angioplasty distal fempop bypass anastomosis with 3 x 100 and 5 x 200 mustang balloons, and angioplasty of the proximal anterior tibial artery with a 3 x 100 Roanoke balloon as well. 4. Angioplasty proximal fempop bypass anastomosis with 7 x 200 mustang balloon 5. Cross chronic total occlusion R SFA/proximal popliteal artery and angioplasty with 5 x 200 mustang balloon 6. Stent R SFA with 2 (6 x 150 Innova stents) prox and mid, and distal SFA/prox popliteal with 5 x 150 Innova stents 7. Post dilate stents with 7 x 200 mustang balloon, which I estimate oversized the 6 stents to 7 and the 5 stent to a 6. 8. Completion arteriograms 9. Mynx closure L CAMPAIGN DIRECTOR SURGEON: Concha Shoemaker MD ANESTHESIA: Local anesthesia 6cc lidocaine. Moderate intravenous conscious sedation was supervised by Dr. Shoemaker. The patient was independently monitored by registered nurse assigned to the Department of radiology using automated blood pressure, EKG, and pulse oximetry. The detailed [facility] record is permanently stored in the hospital information system. The following is a conscious sedation record: Start time 08:10, end time 10:17, versed 2.5mg IV, fentanyl 125 mcg IV, heparin 6000 units IV. He tolerated the sedation well. There were no complications with sedation. CONTRAST: 70cc INDICATION FOR PROCEDURE: Mr. Lux is a very pleasant 63-year-old gentleman who underwent right femoral-popliteal bypass in another [facility] in an outside facility and subsequently had significant difficulties with wound healing, swelling, infection, and has had a difficult road progressing and healing from this bypass. He has been seeing Dr. Calvo at the wound care center who has been providing excellent wound care, there was concern that the patient may have inadequate arterial flow despite the bypass. An arterial study was done that found a significant stenosis at the distal aspect of the bypass, with a PSV of 505. There is also concern for mild stenosis at the origin of the bypass as well. The right superficial femoral artery and proximal popliteal artery are chronically occluded. After reviewing the images with the patient, I discussed the option to first attempt to salvage the bypass with angioplasty the proximal and distal anastomoses. This close to the initial surgery, it is most likely that the stenosis is either secondary to a technical issue or due to intimal hyperplasia, both can be resistant to angioplasty. Because of this, and because the patient has not yet healed his initial incisions below the knee, I feel the safest option is to also give him a backup with in-line koi flow. He said at one point he did attempt to cross his occlusion endovascularly but were unsuccessful. I feel it is worth one more try. I did express the patient that I may not have anymore lock than the original surgeon, but it would be worthwhile to try since I'm not sure his bypass will be salvageable as is, at least not long-term. I also feel a revision of the distal anastomosis of his bypass would be nearly impossible due to his history of scar tissue and nonhealing in the area, which would make dissection extremely difficult and high risk for serious complications and could possibly result in failure of the bypass itself. Therefore, we will attempt to angioplasty the proximal and distal anastomosis of the bypass as well as try to cross a chronic total occlusion in the koi vessels and see if we can open this with angioplasty and stenting. Hopefully this additional blood flow, one or both, will provide a boost to healing. The patient is still smoking, and we had a very long discussion on multiple occasions about the importance of smoking cessation for both wound healing and patency of arterial flow. INTERPRETATION: 1. The iliac vessels bilaterally are patent, but have heavy calcification, but no significant stenosis noted. 3. There is good flow through the right common femoral artery into the profunda and into the proximal femoropopliteal bypass, but there is a stenosis with poststenotic dilatation in the vein bypass about 1 cm from the origin. 4. The proximal SFA has trickle flow in the SFA occludes several centimeters from its origin and does not reconstitute until the mid distal popliteal artery. This reconstitution is from both collateral circulation and the bypass. 5. The distal anastomosis at the bypass is extremely stenotic with almost imperceptible flow at one aspect where the stenosis appears to be about greater than 90%. There is some calcification in the distal popliteal artery and tibial vessels, but they are patent. No significant stenosis is noted except a 40% stenosis in several areas of the proximal anterior tibial artery, which improved with angioplasty. 6. After angioplasty of the proximal and distal anastomoses in the bypass, there is excellent flow into the popliteal artery with minimal residual stenosis. 7. After crossing the chronic total occlusion in the right superficial femoral artery and proximal popliteal artery, we were successful with angioplasty and stenting with no significant residual stenosis and in-line flow. 8. After angioplasty of the bypass and angioplasty and stenting of the koi vessels, the tibial vessels were patent on completion arteriogram with no signs of embolization or obstruction. PROCEDURE: The patient was brought to the angiographic suite in stable condition. Antibiotics and sedation were administered without complication. His bilateral groins were prepped and draped in sterile fashion. A timeout was performed. Local anesthesia was administered to the skin and subcutaneous tissue over the left common femoral artery and a microneedle was used to access the artery under ultrasound guidance. Past through this access and a micro-sheath was placed. Through this access, Glidewire was advanced into the distal aorta under fluoroscopic guidance the sheath was exchanged for 6 [place] sheath and flushed with saline. We then utilized a catheter to go up and over the bifurcation. Prior to this, a quick arteriogram showed that the iliac vessels were patent but heavily calcified. Once we were able to advance her wire into the distal aspect of the bypass, we then exchanged the sheath for 45 cm 7 [place] sheath up and over the bifurcation. The sheath was flushed with saline. An oblique view of the right groin was obtained and showed patency into the profunda, with trickle flow into the koi SFA proximally, and good flow into the bypass proximally with a moderate stenosis about a centimeter from the origin. Under fluoroscopic guidance we advanced the wire distally into the tibial vessels. It took a little bit of manipulation to get this through the very tight distal anastomosis. Due to the severity of the stenosis distally, we first angioplastied with a 3 x 100 Roanoke balloon. This was fairly high inflation for 1 minute. Following this, we exchange for 5 x 200 Roanoke balloon, in order that we might use the same balloon if we are able to cross the SFA occlusion. There was a significant waist but the waist released with the balloon, and a three-minute inflation was performed. Following this, there was rapid flow through the distal aspect of the anastomosis into the popliteal vessels with minimal residual stenosis. We then turned our attention to the koi vessels. It took a bit of time but we're eventually able to access the origin of the SFA with a stiff Glidewire and a rubicon catheter. First we were only able to cross to about mid thigh before selecting collateral circulation, but after about 20 minutes of effort we were able to get through the occlusion in the SFA all the way down to the popliteal artery and confirmed we were in the true lumen. We then angioplastied the entire aspect with 5 x 200 Roanoke balloon with serial inflations to predilate the vessel. We sequentially stented from proximal to distal with 1 cm overlaps with first a 6 x 150 and Innova stent, another 6 x 150, and last a 5 x 150 Innova stent. The final aspect of the stent distally within the proximal popliteal artery. The proximal aspect of the stent was just distal to the takeoff of the femoropopliteal bypass. We post dilated this with a larger balloon to oversize each of the stents a little bit to improve patency. Following this, there was rapid flow through the koi vessels into the tibials, but less so through the bypass. We certainly did not want to lose the bypass as a backup option for perfusion, so we then accessed the bypass with the Glidewire and angioplasty proximally with a 7 x 200 Roanoke balloon. Following this, there was rapid flow through both the koi vessels and through the bypass to the distal system. Completion arteriogram at the cath showed wide ly patent tibial vessels with no dissection or embolization present. No significant with stenosis was noted below the knee and we did not angioplasty the tibial vessels aside from the proximal anterior tibial artery. This concluded our procedure. We exchange the sheath for short 7 [place] sheath in the left common femoral artery and occluded Mynx closure device under fluoroscopic guidance. Good hemostasis was noted and pressure was held for 10 minutes and the patient was taken to recovery in stable condition. ESTIMATED BLOOD LOSS: Approximately 10 mL. COMPLICATIONS: None. PLAN: Will give one dose plavix post procedure and patient will resume home plavix tomorrow. We will see him back within a week to check his access site left groin and perfusion. He should continue his right lower extremity wound care per his wound care center instructions. CONCHA SHOEMAKER MD Nov 27, 2018 10:14
== END | disposition home or self-care (01) ==
LOC: M IRPRO 06:34
PROVIDERS: ATTEND Surgery Vascular Surgery
DX: I70.391 Other atherosclerosis of unspecified type of bypass graft(s) of the extremities, right leg (principal); I70.92 Chronic total occlusion of artery of the extremities
CPT/HCPCS: 37226; 37228; 80048; 85027; 99152; 99153; C1725; C1760; C1769; C1876; C1887; C1894; J0690; J2250; J3010; Q9967

== ENCOUNTER → 2018-12-10 | Outpatient (CLI) | payer MEDICARE ==
[~2018-12-10] MED LIST changes: -CLOPIDOGREL 75 MG TAB As Ordered ONE; -HEPARIN 1,000 UNITS/ML 10ML VIAL (FOR RADIOLOGY& DIALYSIS ONLY) As Ordered ONE; -ISOVUE-300 61% 50ML VIAL (Q9967) As Ordered ONE; -LIDOCAINE 2% MDV 20 ML VIAL As Ordered ONE; -MIDAZOLAM INJ 2 MG/2 ML VIAL (J2250) As Ordered ONE; -ceFAZolin 1GM INJ (J0690 PER 500MG) As Ordered ONE; -fentaNYL 100 MCG/2 ML INJECTION (J3010) As Ordered ONE
--- NOTE | 2018-12-10 12:23 | REP ---
Right lower extremity artery duplex ultrasound: The patient has a femoral - popliteal bypass graft. Right brachial peak systole: 200 mmHg. Right dorsalis pedis peak systole: 130 mmHg. Right ENGINEERING LABORATORY TECHNICIAN peak systole: 140 mmHg. Left brachial peak systole 160 mmHg. Peak Systolic Phasicity Velocity AUTO ELECTRICAL TECHNICIAN 252 monophasic Profunda -- -- SFA prox 110 monophasic SFA mid 97 monophasic SFA dist 88 monophasic Pop 100 monophasic HOA prox 83 monophasic Tib/P tr 133 monophasic ENGINEERING LABORATORY TECHNICIAN pr one obscures -- ENGINEERING LABORATORY TECHNICIAN dst 46 monophasic HOA dst 41 monophasic Flow in the femoral - popliteal bypass graft is reversed. This may be from increased flow in the distal lower extremity with high pressures in calf vessels. No stenosis is identified at the distal bypass graft on today's examination. There is a disparity in peak systolic brachial artery pressures. Electronically Signed by Roderick Urbano MD 12/10/2018 12:14 P
== END ==
LOC: M RAD 08:30
PROVIDERS: ATTEND Surgery Vascular Surgery
DX: I70.33 Atherosclerosis of unspecified type of bypass graft(s) of the right leg with ulceration (principal); I70.201 Unspecified atherosclerosis of native arteries of extremities, right leg; L97.219 Non-pressure chronic ulcer of right calf with unspecified severity; Z95.1 Presence of aortocoronary bypass graft

== ENCOUNTER → 2019-03-04 | Outpatient (REF) | payer MEDICARE ==
[~2019-03-04] MED LIST changes: +METF-791 PO; -METF500T4 PO; +ZETI10TA16 PO; -ZETI10TA30 PO
== END ==
LOC: M LAB REF 16:00
PROVIDERS: ATTEND Family Medicine
DX: D64.9 Anemia, unspecified (principal)

== ENCOUNTER → 2019-04-01 | Outpatient (CLI) | payer MEDICARE ==
[~2019-04-01] MED LIST changes: +ISOVUE-370 76% 100ML VIAL (Q9967) As Ordered ONE
--- NOTE | 2019-04-01 14:15 | REP ---
CT chest with IV contrast: History: Pulmonary nodule. Comparison study: March 04, 2018. CT contrast dose: 75 mL of intravenous Isovue 370. CT findings: Emphysematous changes are again noted in the lung apices. No pleural or pericardial effusion is seen. No hilar or mediastinal mass or adenopathy is observed. There is some vascular calcification with focal 75% narrowing seen in the subclavian artery on the left and fairly extensive vascular calcification in the distribution of the left coronary artery. There is some diffuse thickening of the adrenal glands bilaterally unchanged from March 04, [address] study abdomen and pelvis. Visualized upper abdominal structures are unremarkable. The previously noted 3 mm right upper lobe pulmonary nodule is no longer visible. No significant pulmonary nodule is appreciated. Impression: Emphysematous changes in the upper lobes bilaterally. Consistent with COPD. Vascular calcification including fairly prominent left coronary artery vascular calcification. 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 Otherwise no acute disease. Electronically Signed by Davy Villanueva MD 04/01/2019 06:25 P
== END ==
LOC: M RAD 09:16
PROVIDERS: ATTEND Family Medicine
DX: J43.9 Emphysema, unspecified (principal); I77.1 Stricture of artery; I25.10 Atherosclerotic heart disease of native coronary artery without angina pectoris
CPT/HCPCS: 71260; Q9967

== ENCOUNTER → 2019-04-14 | Outpatient (CLI) | payer MEDICARE ==
[~2019-04-14] MED LIST changes: -ISOVUE-370 76% 100ML VIAL (Q9967) As Ordered ONE
--- NOTE | 2019-04-14 13:10 | REP ---
BILATERAL LOWER EXTREMITY DUPLEX DOPPLER ARTERIAL ULTRASOUND: Real-time ultrasound evaluation and duplex Doppler interrogation of the bilateral lower extremity arterial systems is performed. Comparison is made with prior study of the right lower extremity 12/10/2018. Severe plaquing is seen diffusely bilaterally. A patent stent is seen in the right superficial femoral artery through the right popliteal artery. There is also a right common femoral artery to tibioperoneal trunk bypass graft which is patent. There are somewhat elevated flow velocities at the anastomosis between the right common femoral artery and bypass graft 252 cm/s with triphasic waveform. More distally monophasic waveforms are seen throughout the bypass graft with relatively normal flow velocities. These range between 35.3 cm/s to 92.7 cm/s. In the right common femoral artery there is a linear hyperechoic structure centrally with patent flow on both sides. This may indicate an intimal tear or separation. There is increased flow velocity in this region. There is elevated flow velocity in the proximal right profunda suggesting stenosis at that location. There may be stenosis at the origin of the left posterior tibial artery and right anterior tibial artery with elevated flow velocities. ALIN right 0.98 and left 0.54. PEAK SYSTOLIC VELOCITY RIGHT LEFT Common femoral artery 331.0 cm/s 144.0 cm/s Profunda 260.0 166.0 Proximal SFA 148.0 140.0 Superficial femoral artery mid 83.2 117.0 Superficial femoral artery distal 65.9 104.0 Popliteal 108.0 45.7 Proximal anterior tibial artery 187.0 116.0 Tibial peroneal trunk 90.0 50.9 Proximal posterior tibial artery 116.0 170.0 Distal posterior tibial artery 32.0 16.5 Distal anterior tibial artery 24.1 17.4 In the right lower extremity there are monophasic waveforms diffusely except for a biphasic waveform in the distal CORPORATE COUNSEL. On the left triphasic and biphasic waveforms are seen diffusely except for monophasic waveforms in the distal anterior and posterior tibial arteries. Electronically Signed by Roderick Hunter MD 04/14/2019 01:16 P
== END ==
LOC: M RAD 08:34
PROVIDERS: ATTEND Surgery Vascular Surgery
DX: I70.33 Atherosclerosis of unspecified type of bypass graft(s) of the right leg with ulceration (principal); F17.210 Nicotine dependence, cigarettes, uncomplicated; L97.219 Non-pressure chronic ulcer of right calf with unspecified severity; Z95.820 Peripheral vascular angioplasty status with implants and grafts

== ENCOUNTER → 2019-04-23 | Outpatient (REF) | payer MEDICARE ==
[2019-04-26 15:45] LABS: ANTINUCLEAR ANTIBODIES DIRECT Negative (Negative)
== END ==
LOC: M LAB REF 17:47
PROVIDERS: ATTEND Registered Nurse
DX: M79.10 Myalgia, unspecified site (principal)

== ENCOUNTER → 2019-05-05 | Outpatient (CLI) | payer MEDICARE ==
[~2019-05-05] MED LIST changes: +ADVI100T PO; +ALTEPLASE 2 MG/2 ML VIAL (J2997 PER 1MG) As Ordered ONE; +CLOPIDOGREL 75 MG TAB As Ordered ONE; +HEPARIN 1,000 UNITS/ML 10ML VIAL (FOR RADIOLOGY& DIALYSIS ONLY) As Ordered ONE; +ISOVUE-300 61% 50ML VIAL (Q9967) As Ordered ONE; +LIDOCAINE 1% MDV 20ML VIAL As Ordered ONE; +MIDAZOLAM INJ 2 MG/2 ML VIAL (J2250) As Ordered ONE; +NITROGLYCERIN IN D5W 25MG/250ML (100MCG/ML) As Ordered ONE; +PLAV1TAB2 PO; +fentaNYL 100 MCG/2 ML INJECTION (J3010) As Ordered ONE
[2019-05-05 09:09] LABS: HEMATOCRIT 33.1 % (42.0-52.0); HEMOGLOBIN 11.2 g/dl (13.5-17.5); MEAN CORPUSCULAR HEMOGLOBIN 37.6 pg (27.0-33.0); MEAN CORPUSCULAR HGB CONC 33.8 g/dl (32.0-36.5); MEAN CORPUSCULAR VOLUME 111.1 fl (80.0-96.0); PLATELET COUNT, AUTOMATED 177 10^3/uL (150-450); RED BLOOD COUNT 2.98 10^6/uL (4.30-6.10); WHITE BLOOD COUNT 3.3 10^3/uL (4.0-10.0)
[2019-05-05 09:37] LABS: BLOOD UREA NITROGEN 18 MG/DL (7-18); CALCIUM LEVEL 9.1 MG/DL (8.8-10.2); CARBON DIOXIDE LEVEL 27 MEQ/L (21-32); CHLORIDE LEVEL 105 MEQ/L (98-107); CREATININE FOR GFR 0.96 MG/DL (0.70-1.30); GLOMERULAR FILTRATION RATE > 60.0 (>49); GLUCOSE, FASTING 242 MG/DL (70-100); POTASSIUM SERUM 4.4 MEQ/L (3.5-5.1); SODIUM LEVEL 137 MEQ/L (136-145)
--- NOTE | 2019-05-05 11:44 | ROOPDOC ---
[facility] Report Of Operation Report of Operation DATE OF PROCEDURE: 05/05/19 PREPROCEDURE DIAGNOSES: Atherosclerosis the salamatof vessels with nonhealing wound left medial calf. POSTPROCEDURE DIAGNOSES: Same. PROCEDURE: 1. Ultrasound-guided access left common femoral artery 2. Right lower extremity arteriogram and runoff 3. Angioplasty right anterior tibial artery distally with 2.5 x 220 [place] balloon and proximally with 3 x 100 [place] balloon 4. Angioplasty right posterior tibial artery with 2.5 x 220 [place] balloon distally and 3 x 100 [place] balloon proximally 5. Completion arteriograms 6. Angioplasty right popliteal artery and distal superficial femoral artery with 4 x 200 [place] balloon 7. Completion arteriogram 8. Mynx closure left common femoral artery SURGEON: Concha Shoemaker MD ANESTHESIA: Local anesthesia 8 mL lidocaine. Moderate intravenous conscious sedation was supervised by Dr. Shoemaker. The patient was independently monitored by registered nurse assigned to the Department of radiology using automated blood pressure, EKG, pulse oximetry. The detail sedation record is permanently housed in the hospital information system. The following is the brief sedation record: Start time: 09:29, start time: 11:08, Versed 1.5 mg IV, fentanyl 125 g IV, heparin 7000 units. CONTRAST: 64 mL Isovue-300 INDICATION FOR PROCEDURE: Mr. Lux is a very pleasant 64-year-old patient with severe right lower extremity peripheral vascular disease status post femoral below knee popliteal bypass in [place] 1 year ago, complicated by a dehiscence of his below-knee bypass incision and chronic medial calf wound since that time. He underwent revascularization including opening his salam[place]of vessel and angioplasty the proximal distal bypass several months ago, and he did have improvement with epithelialization of his wound, but his recent repeat arterial duplex showed there was some tibial flow limitation. Risks benefits and alternatives to an arteriogram and potential intervention were explained to the patient he was agreeable to proceed. Informed consent was obtained. INTERPRETATION: 1. The right common femoral artery is widely patent with good flow into the salam[place]of SFA, status post angioplasty and stenting, as well as into the femoral- popliteal bypass. There is simultaneous flow through each. At the knee, the bypass is widely patent into the popliteal artery and there is some ectasia through the distal SFA and popliteal artery. Below the knee, the main runoff to the foot is through the posterior tibial artery although there was some stenosis and plaque with ectasia in the proximal aspect. There was good flow through the peroneal to the ankle, but limited flow through the anterior tibial artery to the ankle due to heavy plaque, ectasia, and several near occlusions. 2. After angioplasty of the anterior tibial artery, there is widely patent flow in line to the foot. 3. After angioplasty of the proximal posterior tibial artery, there was flow limitation at the ankle. There was flow getting into the plantar arch of the foot so I suspected spasm, but to be sure that we did not have any embolization, a total of 10 mg of TPA was administered across the distal posterior tibial artery. We then angioplasty with a 2.5 x 220 balloon for three-minute inflation and following this there was still intermittent flow through that area but good flow into the plantar arch the foot. Still suspecting spasm, I did inject 200 g of nitroglycerin directly at the site with some improvement in flow, but I think it will take a bit more time for the spasm to resolve. 4. After angioplasty of the popliteal artery and distal SFA, there was good flow through the vessel with resolution of the ectasia and no focal limitations dissections embolization or extravasation noted. REPORT OF OPERATION: The patient was brought to the angiographic suite in stable condition and placed supine on the fluoroscopic table. His bilateral groins were prepped and draped in a sterile fashion. A timeout was performed. Sedation was administered without complication. Local anesthesia was administered to the skin and subcutaneous tissue over the left common femoral artery. A microneedle was used to access the artery under ultrasound guidance. A wire was passed through this access into the iliac system under fluoroscopic guidance. The needle was removed and a micro-sheath was placed using a Seldinger technique. Through this access, Glidewire was passed into the distal aorta under fluoroscopic guidance in her sheath was exchanged for 6 Faroese sheath which was flushed with saline. We went up and over the bifurcation with a Glidewire and omni-flush catheter. After selecting the common femoral artery, right lower extremity arteriograms with runoff or perform. Please see interpretation above. We advanced a Glidewire under fluoroscopic guidance through the salam[place]of SFA into the popliteal artery. We exchanged sheath for 70 cm 6 Faroese sheath over the wire using the Seldinger technique. Sheath was difficult to get over the tight angle of the bifurcation, thus we exchanged the wire for a 260 superstiff Amplatz wire and we were able to advance the sheath into the distal SFA. The sheath was flushed with saline. We exchanged the wire again for an O18 Glidewire advantage and advance this down of the tibial system. Gleich cath and the L1 1 wire were used to selected the anterior tibial artery. The Glidewire was then advanced into the distal anterior tibial artery. Over the wire, a 2.5 x 220 [place] balloon was used to angioplasty the mid and distal portion of the vessel across to the DP artery, but the proximal was angioplastied with a 3 x 100 [place] balloon. Both inflations were for 3 minutes. Following this there is widely patent flow through the anterior tibial artery. We then past our wire into the posterior tibial artery and angioplasty the proximal aspect with a 3 x 100 [place] balloon for three-minute inflation. Following this, we had great flow through the proximal vessel, but her outflow was limited at the ankle. There was addressed getting into the plantar vessel, and I wasn't sure if her limitation with spasm or possible thrombus embolization so I felt the safest thing to do at first was to inject TPA to make sure we do not have any clot formation, and this did not resolve the issue or change things much, therefore we angioplasty across the whole area with a 2.5 x 220 [place] balloon but this did not resolve the spasm either, and 200 g of nitroglycerin was subsequently injected. It will likely take a bit of time for this to resolve but it was improved by case closely think if we continue to try to angioplasty the vessel we may make the spasms worse. We then over the wire angioplasty the popliteal artery just proximal to the distal anastomosis of the bypass only up to Jaciel's canal. A 4 x 200 [place] balloon was used for three-minute inflation and following this the ectasia in the vessel in this area had resolved and there was widely patent flow. No dissection or extravasation was noted. This concluded our procedure. We states that sheath over the wire for a short 6 Faroese sheath in the mynx closure device was deployed with good hemostasis. Pressure was held for 10 minutes and the patient was taken to recovery in stable condition. The patient had a palpable DP pulse a case close, PT signal was biphasic, foot was warm and pink. ESTIMATED BLOOD LOSS: Approximately 4 mL. COMPLICATIONS: None. PLAN: Resume home medications and we will give a dose of Plavix and recovery here today. We will see the patient back in clinic to see how he is doing. Hopefully his wound will soon be healed and this will help him to move forward after such a lengthy recovery. We continue to encourage him to quit smoking, as all the work we are doing well and eventually fail if he continues to smoke. CONCHA SHOEMAKER MD May 05, 2019 11:44
[2019-05-05 14:45] VITALS: BP 162/74
== END ==
LOC: M IRPRO 08:34
PROVIDERS: ATTEND Surgery Vascular Surgery
DX: I70.232 Atherosclerosis of native arteries of right leg with ulceration of calf (principal)
CPT/HCPCS: 37211; 37224; 37228; 37232; 75710; 80048; 85027; 99152; 99153; C1725; C1729; C1760; C1769; C1887; C1894; J2250; J2997; J3010; Q9967

== ENCOUNTER → 2019-11-09 | Outpatient (REF) | payer MEDICARE ==
[~2019-11-09] MED LIST changes: -ALTEPLASE 2 MG/2 ML VIAL (J2997 PER 1MG) As Ordered ONE; -CLOPIDOGREL 75 MG TAB As Ordered ONE; -HEPARIN 1,000 UNITS/ML 10ML VIAL (FOR RADIOLOGY& DIALYSIS ONLY) As Ordered ONE; -ISOVUE-300 61% 50ML VIAL (Q9967) As Ordered ONE; -LIDOCAINE 1% MDV 20ML VIAL As Ordered ONE; -METF-791 PO; +METF-838 PO; -MIDAZOLAM INJ 2 MG/2 ML VIAL (J2250) As Ordered ONE; -NITROGLYCERIN IN D5W 25MG/250ML (100MCG/ML) As Ordered ONE; -fentaNYL 100 MCG/2 ML INJECTION (J3010) As Ordered ONE
[2019-11-09 14:02] LABS: ANISOCYTOSIS 1+; ATYPICAL LYMPH 1 % (0-5); LYMPHOCYTES 57 % (16-44); MONOCYTES 17 % (0-5); NEUTROPHILS 25 % (28-66); PLATELET ESTIMATE NORMAL (NORMAL)
[2019-11-09 14:03] LABS: POLYCHROMASIA 1+
== END ==
LOC: M LAB REF 12:16
PROVIDERS: ATTEND Family Medicine
DX: D72.9 Disorder of white blood cells, unspecified (principal)

== ENCOUNTER → 2019-11-30 | Outpatient (REF) | payer MEDICARE ==
[2019-11-30 13:53] LABS: PERCENT SATURATION 40.2 % (19.7-50.0)
[2019-11-30 13:54] LABS: FOLATE 12.1 NG/ML
== END ==
LOC: M LAB REF 11:36
PROVIDERS: ATTEND Family Medicine
DX: D64.9 Anemia, unspecified (principal); D72.9 Disorder of white blood cells, unspecified
CPT/HCPCS: 15271; 82607; 82728; 82746; 83550; Q4121

== ENCOUNTER → 2020-05-09 | Outpatient (CLI) | payer MEDICARE ==
[~2020-05-09] MED LIST changes: -AMLO10TA5 PO; +AMLO1TAB25 PO
--- NOTE | 2020-05-09 14:04 | REP ---
INDICATION: SWELLING , ? SEROMA VS INFECTION/ ULCER COMPARISON: None TECHNIQUE: Real time major scale ultrasound examination using linear high-frequency transducer. FINDINGS: Directed ultrasound examination at the area of maximal swelling and tenderness along the calf inferior to the knee at the site of open wound demonstrates subcutaneous edema without discrete fluid collection/hematoma or further abnormality. IMPRESSION: Subcutaneous edema. No focal collection/hematoma or abnormality identified by ultrasound. <Electronically signed by Marin Rubio > 05/09/20 1400
--- NOTE | 2020-05-09 14:08 | REP ---
INDICATION: SWELLING , ? SEROMA VS INFECTION/ ULCER. COMPARISON: 04/14/2019. TECHNIQUE: Real time hunter scale and Duplex Doppler evaluation of the right lower extremity arterial vasculature using linear high frequency transducer. FINDINGS: The ankle to brachial index of the right lower extremity is not measured. Duplex Doppler interrogation demonstrates diffuse monophasic waveforms throughout the right lower extremity arterial structures. There is mild scattered plaquing throughout the right lower extremity arterial structures. A patent stent is noted from common femoral artery to popliteal artery. Greater saphenous vein bypass graft is seen extending from common femoral artery to popliteal artery, the anastomosis at the popliteal artery is not seen due to soft tissue edema. The greater saphenous vein bypass graft is patent. There is elevated peak systolic velocity proximally, 340 centimeters/second. Peak systolic velocity in the mid aspect 65.8 centimeters/second and distally 49 centimeters/second. PSV(cm/sec) Common femoral artery: 169 cm/s Profunda femoris artery: 156 cm/s Proximal superficial femoral artery: 66 cm/s Mid superficial femoral artery: 98 cm/s Distal superficial femoral artery: 91 cm/s Popliteal artery: 66 cm/s Proximal HOA: 110 cm/s Tibioperoneal trunk: 92 cm/s Proximal SCIENCE [employer] OPERATIONS OFFICER: 26 cm/s Distal SCIENCE [employer] OPERATIONS OFFICER: 26 cm/s Distal HOA: 54 cm/s IMPRESSION: Mild diffuse plaquing and monophasic waveforms. Patent stent from common femoral artery to popliteal artery. Patent greater saphenous vein bypass graft with elevated peak systolic velocity in the proximal aspect near the anastomosis with the common femoral artery. <Electronically signed by Roderick Hunter > 05/09/20 1932
== END ==
LOC: M RAD 12:03
PROVIDERS: ATTEND Physician Assistant
DX: R22.41 Localized swelling, mass and lump, right lower limb (principal); E11.622 Type 2 diabetes mellitus with other skin ulcer; L97.812 Non-pressure chronic ulcer of other part of right lower leg with fat layer exposed

== ENCOUNTER → 2020-11-10 | Outpatient (REF) | payer MEDICARE ==
[2020-11-10 12:45] LABS: ANISOCYTOSIS 1+; BASOPHILS 2 % (0-1); LYMPHOCYTES 76 % (16-44); MONOCYTES 10 % (0-5); NEUTROPHILS 12 % (28-66); PLATELET ESTIMATE NORMAL (NORMAL)
== END ==
LOC: M LAB REF 11:28
PROVIDERS: ATTEND Family Medicine
DX: D72.9 Disorder of white blood cells, unspecified (principal)

== ENCOUNTER → 2021-05-04 | Outpatient (REF) | payer MEDICARE ==
[2021-05-04 13:11] LABS: ATYPICAL LYMPH 2 % (0-5); BASOPHILS 1 % (0-1); LYMPHOCYTES 65 % (16-44); MONOCYTES 23 % (0-5); NEUTROPHILS 9 % (28-66)
[2021-05-04 13:12] LABS: ANISOCYTOSIS 1+; PLATELET ESTIMATE NORMAL (NORMAL)
== END ==
LOC: M LAB REF 12:23
PROVIDERS: ATTEND Family Medicine
DX: D72.9 Disorder of white blood cells, unspecified (principal)

== ENCOUNTER → 2022-04-15 | Outpatient (REF) | payer MEDICARE ==
[~2022-04-15] MED LIST changes: +BENA-8 PO; -BENA20TA8 PO; +CLOP75TA99 PO; -PLAV1TAB2 PO; +TIZA10TA PO; -TIZA4TAB4 PO
[2022-04-15 14:26] LABS: ATYPICAL LYMPH 9 % (0-5); BASOPHILS 2 % (0-1); LYMPHOCYTES 59 % (16-44); MONOCYTES 17 % (0-5); NEUTROPHILS 12 % (28-66)
[2022-04-15 14:27] LABS: ANISOCYTOSIS 1+
[2022-04-15 14:28] LABS: PLATELET ESTIMATE NORMAL (NORMAL)
== END ==
LOC: M LAB REF 11:58
PROVIDERS: ATTEND Family Medicine
DX: D72.9 Disorder of white blood cells, unspecified (principal)

== ENCOUNTER → 2022-05-20 | Outpatient (CLI) | payer MEDICARE | LOC: M RAD 08:45 | PROVIDERS: ATTEND Family Medicine | DX: Z87.891 Personal history of nicotine dependence (principal); Z12.2 Encounter for screening for malignant neoplasm of respiratory organs ==

== ENCOUNTER → 2022-10-21 | Outpatient (REF) | payer MEDICARE ==
[2022-10-21 14:32] LABS: ATYPICAL LYMPH 2 % (0-5); BASOPHILS 1 % (0-1); LYMPHOCYTES 68 % (16-44); MONOCYTES 21 % (0-5); NEUTROPHILS 8 % (28-66)
[2022-10-21 14:33] LABS: ANISOCYTOSIS 1+; GIANT PLATELETS 1+; PLATELET ESTIMATE NORMAL (NORMAL)
== END ==
LOC: M LAB REF 12:32
PROVIDERS: ATTEND Family Medicine
DX: D72.9 Disorder of white blood cells, unspecified (principal)

== ENCOUNTER 2022-10-28 12:56 | Day surgery (SDC) | payer MEDICARE ==
[~2022-10-28] VITALS: Ht 170.2 cm; Wt 95.8 kg
[~2022-10-28 12:56] MED LIST changes: +NS 1,000 ML IV ONE
[2022-10-28] MEDS ORDERED: LIDOCAINE 2% 100MG/5ML SDV (FOR ANES.) As Ordered ONE (14:02)
[2022-10-28] MEDS ORDERED: propofoL 200 MG/20 ML VIAL As Ordered ONE (14:02)
[2022-10-28] MEDS ORDERED: fentaNYL 100 MCG/2 ML INJECTION As Ordered ONE (14:03)
[2022-10-28 15:52] VITALS: BP 129/59
== END 2022-10-28 15:59 | disposition home or self-care (01) ==
LOC: M OPP 12:56
PROVIDERS: ATTEND Internal Medicine Gastroenterology
DX: Z80.0 Family history of malignant neoplasm of digestive organs (principal); K64.0 First degree hemorrhoids; K31.89 Other diseases of stomach and duodenum; K22.89 Other specified disease of esophagus; F17.200 Nicotine dependence, unspecified, uncomplicated; Z79.01 Long term (current) use of anticoagulants; Z79.51 Long term (current) use of inhaled steroids; Z79.891 Long term (current) use of opiate analgesic; Z79.899 Other long term (current) drug therapy; Z88.0 Allergy status to penicillin; Z88.8 Allergy status to other drugs, medicaments and biological substances
CPT/HCPCS: 43239; 88305; G0105; J3010

== ENCOUNTER 2022-11-21 07:29 | Emergency (ER) | payer MEDICARE ==
[~2022-11-21] VITALS: Ht 170.2 cm; Wt 96.8 kg
[~2022-11-21 07:29] MED LIST changes: +ACYC1TAB; +IBUP200C25 PO; +LEVO1TAB39; -NS 1,000 ML IV ONE; +OMEP10CASR PO; +TIZA10TA
[2022-11-21] MEDS ORDERED: MULT-90 PO (07:44)
[2022-11-21] MEDS ORDERED: CVS55SPR NARES (07:44)
[2022-11-21] MEDS ORDERED: DULO1CAP4 (07:44)
[2022-11-21] MEDS ORDERED: NORCO, ANEXSIA 5/325MG TABLET (HYDROcodone/ACETAMINOPHEN) PO ONE (08:35)
[2022-11-21 08:44] LABS: HEMOGLOBIN 11.1 g/dl (13.5-17.5); MEAN CORPUSCULAR HEMOGLOBIN 37.2 pg (27.0-33.0); MEAN CORPUSCULAR HGB CONC 33.6 g/dl (32.0-36.5); MEAN CORPUSCULAR VOLUME 110.7 fl (80.0-96.0); PLATELET COUNT, AUTOMATED 142 10^3/uL (150-450); RED BLOOD COUNT 2.98 10^6/uL (4.30-6.10); WHITE BLOOD COUNT 5.5 10^3/uL (4.0-10.0)
[2022-11-21 09:09] LABS: ERYTHROCYTE SEDIMENTATION RATE 70 mm/hr (0-20)
[2022-11-21 09:49] LABS: BLOOD UREA NITROGEN 16 MG/DL (9-23); CALCIUM LEVEL 8.6 MG/DL (8.3-10.6); CARBON DIOXIDE LEVEL 26 MMOL/L (20-31); CHLORIDE LEVEL 102 MMOL/L (98-107); CREATININE FOR GFR 0.85 MG/DL (0.70-1.30); GLOMERULAR FILTRATION RATE > 60.0 (>49); GLUCOSE, FASTING 113 MG/DL (74-106); SODIUM LEVEL 136 MMOL/L (136-145)
[2022-11-21 10:05] LABS: ATYPICAL LYMPH 1 % (0-5); BASOPHILS 1 % (0-1); LYMPHOCYTES 44 % (16-44); MONOCYTES 18 % (0-5); NEUTROPHILS 36 % (28-66); PLATELET ESTIMATE NORMAL (NORMAL)
[2022-11-21 10:06] LABS: ANISOCYTOSIS 1+; MICROCYTOSIS 1+; POLYCHROMASIA 1+
[2022-11-21 11:24] VITALS: BP 131/62; TEMP 97.8; O2SAT 95
[2022-11-21] MEDS ORDERED: DOXYCYCLINE HYCLATE 100MG TABLET PO ONE (11:35)
[2022-11-21] MEDS ORDERED: DOXY-443 PO (11:36)
== END 2022-11-21 11:49 | disposition home or self-care (01) ==
LOC: M ED 07:29
DX: L97.529 Non-pressure chronic ulcer of other part of left foot with unspecified severity (principal); L03.032 Cellulitis of left toe; M86.172 Other acute osteomyelitis, left ankle and foot; E11.21 Type 2 diabetes mellitus with diabetic nephropathy; I10 Essential (primary) hypertension; J44.9 Chronic obstructive pulmonary disease, unspecified; I73.9 Peripheral vascular disease, unspecified; D46.9 Myelodysplastic syndrome, unspecified; F17.200 Nicotine dependence, unspecified, uncomplicated; Z79.02 Long term (current) use of antithrombotics/antiplatelets; Z79.4 Long term (current) use of insulin; Z79.899 Other long term (current) drug therapy; Z88.8 Allergy status to other drugs, medicaments and biological substances

== ENCOUNTER → 2023-02-06 | Outpatient (REF) | payer MEDICARE ==
[~2023-02-06] MED LIST changes: +CVS55SPR NARES; +DOXY-443 PO; +DULO1CAP4; +MULT-90 PO
== END ==
LOC: M LAB REF 12:47
PROVIDERS: ATTEND Family Medicine
DX: A49.9 Bacterial infection, unspecified (principal); I96 Gangrene, not elsewhere classified

== ENCOUNTER → 2023-10-03 | Outpatient (REF) | payer MEDICARE ==
[~2023-10-03] MED LIST changes: +BUSP5TAB; +EZET10TA58 PO; +FERR325T19; +HYDR-3713; +PROB250C PO; -ZETI10TA16 PO
[2023-10-03 13:03] LABS: HEMATOCRIT 28.1 % (42.0-52.0); HEMOGLOBIN 8.9 g/dl (13.5-17.5); MEAN CORPUSCULAR HEMOGLOBIN 36.3 pg (27.0-33.0); MEAN CORPUSCULAR HGB CONC 31.7 g/dl (32.0-36.5); PLATELET COUNT, AUTOMATED 157 10^3/uL (150-450); RED BLOOD COUNT 2.45 10^6/uL (4.30-6.10); WHITE BLOOD COUNT 3.7 10^3/uL (4.0-10.0)
[2023-10-03 13:07] LABS: MEAN CORPUSCULAR VOLUME 114.7 fl (80.0-96.0)
[2023-10-03 14:16] LABS: ATYPICAL LYMPH 3 % (0-5); BASOPHILS 4 % (0-1); EOSINOPHILS 1 % (0-3); LYMPHOCYTES 51 % (16-44); MONOCYTES 20 % (0-5); NEUTROPHILS 21 % (28-66); PLATELET ESTIMATE NORMAL (NORMAL)
[2023-10-03 14:17] LABS: ANISOCYTOSIS 1+
[2023-10-05 16:08] LABS: PROTEIN C FUNCTIONAL ACTIVITY 81 % (73-180); PROTEIN S FUNCTIONAL ACTIVITY 74 % (63-140)
== END ==
LOC: M LAB REF 11:26
PROVIDERS: ATTEND Physician Assistant
DX: T87.81 Dehiscence of amputation stump (principal)

== ENCOUNTER → 2023-11-14 | Outpatient (CLI) | payer MEDICARE ==
[~2023-11-14] MED LIST changes: +DOXY-323 PO; -DOXY-443 PO; +ISOVUE-370 76% 100ML VIAL As Ordered ONE
== END ==
LOC: M RAD 08:13
PROVIDERS: ATTEND Physician Assistant
DX: S81.002A Unspecified open wound, left knee, initial encounter (principal); I70.0 Atherosclerosis of aorta; Z98.62 Peripheral vascular angioplasty status; R16.0 Hepatomegaly, not elsewhere classified; I70.203 Unspecified atherosclerosis of native arteries of extremities, bilateral legs; X58.XXXA Exposure to other specified factors, initial encounter; Y92.9 Unspecified place or not applicable; Y93.9 Activity, unspecified; Y99.9 Unspecified external cause status
CPT/HCPCS: 75635; Q9967

== ENCOUNTER → 2023-12-25 | Outpatient (CLI) | payer MEDICARE | LOC: M RAD 15:30 | PROVIDERS: ATTEND Surgery Vascular Surgery | DX: I70.92 Chronic total occlusion of artery of the extremities (principal); I70.0 Atherosclerosis of aorta; I73.9 Peripheral vascular disease, unspecified; Z89.612 Acquired absence of left leg above knee | CPT/HCPCS: 75635; Q9967 ==

== ENCOUNTER → 2024-01-19 | Outpatient (REF) | payer MEDICARE ==
[~2024-01-19] MED LIST changes: -ISOVUE-370 76% 100ML VIAL As Ordered ONE
[2024-01-19 16:52] LABS: INR 1.2; PARTIAL THROMBOPLASTIN TIME 35.6 SECONDS (24.8-34.2); PROTHROMBIN TIME 14.8 SECONDS (12.5-14.5)
[2024-01-19 18:54] LABS: PERCENT SATURATION 21.7 % (19.7-50.0)
[2024-01-19 19:02] LABS: FOLATE 20.5 NG/ML (>5.4)
== END ==
LOC: M LAB REF 16:12
PROVIDERS: ATTEND Family Medicine
DX: D64.9 Anemia, unspecified (principal); Z79.01 Long term (current) use of anticoagulants

== ENCOUNTER → 2024-03-15 | Outpatient (CLI) | payer MEDICARE ==
[~2024-03-15] MED LIST changes: -DOXY-323 PO; +DOXY-441 PO; +GABA-1490 PO; -GABA600T4 PO; +GLIP10TA15 PO; -GLIP10TA6 PO
[2024-03-15 13:23] LABS: IONIZED CALCIUM 4.7 MG/DL (4.5-5.3)
[2024-03-15 14:14] LABS: MAGNESIUM LEVEL 1.6 MG/DL (1.8-2.4)
[2024-03-15 14:17] LABS: FOLATE 23.22 NG/ML (>5.4)
[2024-03-17 07:53] LABS: ALBUMIN SPEP 3.7 g/dL (3.8-4.8); ALPHA-1-GLOBULINS SO 0.4 g/dL (0.2-0.3); BETA 2 GLOBULIN 0.9 g/dL (0.2-0.5); BETA-GLOBULIN SO 0.5 g/dL (0.4-0.6); GAMMA GLOBULINS SO 1.5 g/dL (0.8-1.7)
[2024-03-18 02:42] LABS: ANTI THROMBIN 3 ANTIGEN IMMUNO 124 % normal (80-120)
[2024-03-18 04:12] LABS: COPPER PLASMA 152 mcg/dL (70-175); ZINC PLASMA 53 mcg/dL (60-130)
[2024-03-18 18:27] LABS: VITAMIN A, RETINOL LEVEL 51 mcg/dL (38-98); VITAMIN E(ALPHA TOCOPHEROL) 11.4 mg/L (5.7-19.9); VITAMIN E(GAMMA TOCOPHEROL) 1.4 mg/L (<=4.3)
[2024-03-19 19:57] LABS: VITAMIN B6,PYRIDOXAL PHOSPHATE 9.9 ng/mL (2.1-21.7)
[2024-03-20 12:42] LABS: VITAMIN C, ASCORBIC ACID 0.7 mg/dL (0.2-2.1)
[2024-03-23 17:08] LABS: VITAMIN B1 LEVEL WHOLE BLOOD 138 nmol/L (78-185)
== END ==
LOC: M LAB 12:03
PROVIDERS: ATTEND Physician Assistant
DX: I87.331 Chronic venous hypertension (idiopathic) with ulcer and inflammation of right lower extremity (principal); E61.2 Magnesium deficiency

== ENCOUNTER → 2024-03-22 | Outpatient (CLI) | payer MEDICARE ==
[2024-03-22 13:42] LABS: HEMATOCRIT 30.9 % (42.0-52.0); HEMOGLOBIN 10.1 g/dl (13.5-17.5); MEAN CORPUSCULAR HEMOGLOBIN 38.1 pg (27.0-33.0); MEAN CORPUSCULAR HGB CONC 32.7 g/dl (32.0-36.5); PLATELET COUNT, AUTOMATED 141 10^3/uL (150-450); RED BLOOD COUNT 2.65 10^6/uL (4.30-6.10); WHITE BLOOD COUNT 3.4 10^3/uL (4.0-10.0)
[2024-03-22 13:49] LABS: ERYTHROCYTE SEDIMENTATION RATE 72 mm/hr (0-20)
[2024-03-22 13:52] LABS: ALBUMIN 2.9 G/DL (3.2-5.2); ALKALINE PHOSPHATASE 93 U/L (46-116); ALT/SGPT 10 U/L (7.0-40); AST/SGOT 10 U/L (<34); BILIRUBIN,TOTAL 0.4 MG/DL (0.3-1.2); BLOOD UREA NITROGEN 12 MG/DL (9-23); CALCIUM LEVEL 8.8 MG/DL (8.3-10.6); CARBON DIOXIDE LEVEL 26 MMOL/L (20-31); CHLORIDE LEVEL 105 MMOL/L (98-107); CREATININE FOR GFR 0.68 MG/DL (0.70-1.30); GLOMERULAR FILTRATION RATE > 60.0 (>42); GLUCOSE, FASTING 129 MG/DL (74-106); POTASSIUM SERUM 3.8 MMOL/L (3.5-5.1); SODIUM LEVEL 140 MMOL/L (136-145); TOTAL PROTEIN 7.6 G/DL (5.7-8.2)
[2024-03-22 14:16] LABS: MEAN CORPUSCULAR VOLUME 116.6 fl (80.0-96.0)
[2024-03-22 14:22] LABS: ANISOCYTOSIS 1+; BASOPHILS 1 % (0-1); LYMPHOCYTES 60 % (16-44); MONOCYTES 18 % (0-5); NEUTROPHILS 17 % (28-66)
[2024-03-22 14:23] LABS: PLATELET ESTIMATE DECREASED (NORMAL)
== END ==
LOC: EEVIPCON 10:25 → M PLALAB 10:25
PROVIDERS: ATTEND Internal Medicine Infectious Disease
DX: L97.912 Non-pressure chronic ulcer of unspecified part of right lower leg with fat layer exposed (principal)

== ENCOUNTER → 2024-04-12 | Outpatient (CLI) | payer MEDICARE ==
[2024-04-12 10:59] LABS: BASO % 0.7 % (0.0-1.0); HEMATOCRIT 28.7 % (42.0-52.0); HEMOGLOBIN 9.2 g/dl (13.5-17.5); LYMPH # 1.2 10^3/uL (1.5-5.0); LYMPH % 42.6 % (24.0-44.0); MEAN CORPUSCULAR HEMOGLOBIN 37.7 pg (27.0-33.0); MEAN CORPUSCULAR HGB CONC 32.1 g/dl (32.0-36.5); MONO % 34.5 % (2.0-8.0); NEUTROPHILS % 21.5 % (36.0-66.0); PLATELET COUNT, AUTOMATED 162 10^3/uL (150-450); RED BLOOD COUNT 2.44 10^6/uL (4.30-6.10); WHITE BLOOD COUNT 2.8 10^3/uL (4.0-10.0)
[2024-04-12 11:03] LABS: MEAN CORPUSCULAR VOLUME 117.6 fl (80.0-96.0); NEUTROPHILS # 0.6 10^3/uL (1.5-8.5)
[2024-04-12 11:07] LABS: ERYTHROCYTE SEDIMENTATION RATE 50 mm/hr (0-20)
== END ==
LOC: M PLALAB 08:50
PROVIDERS: ATTEND Internal Medicine Infectious Disease
DX: L03.115 Cellulitis of right lower limb (principal)